=== PATIENT | male | born 1960 | race Caucasian/White ===

== ENCOUNTER 2019-04-03 07:45 | Inpatient (IN) | payer OTHER ==
[~2019-04-03] VITALS: Ht 167.6 cm; Wt 72.6 kg
[2019-04-21] MEDS ORDERED: INTESTINEX680 M1 PO (10:22)
[2019-04-21] MEDS ORDERED: POLY119PG PO (10:22)
[2019-04-21] MEDS ORDERED: ULTRACET PO (10:23)
== END 2019-04-21 13:32 | disposition home or self-care (01) | DRG 330 ==
LOC: O/R 07:45 → SURH 04-10 06:11
PROVIDERS: ADMIT Surgery
PROC: 0DQB4ZZ Repair Ileum, Percutaneous Endoscopic Approach (ICD-10-PCS; principal; 2019-04-10 15:15)
PROC: 0DJD8ZZ Inspection of Lower Intestinal Tract, Via Natural or Artificial Opening Endoscopic (ICD-10-PCS; 2019-04-18)
DX: Z43.2 Encounter for attention to ileostomy (principal); K63.2 Fistula of intestine; K91.31 Postprocedural partial intestinal obstruction; K57.30 Diverticulosis of large intestine without perforation or abscess without bleeding; C61 Malignant neoplasm of prostate; T83.091A Other mechanical complication of indwelling urethral catheter, initial encounter; Z19.1 Hormone sensitive malignancy status

== ENCOUNTER 2020-04-18 06:00 | Day surgery (SDC) | payer OTHER ==
[~2020-04-18 06:00] MED LIST: INTESTINEX680 M1 PO; POLY119PG PO; ULTRACET PO
[2020-04-18] MEDS ORDERED: ULTRAM50 MG PO (08:49)
[2020-04-18] MEDS ORDERED: MIRALAX17 GM PO (08:49)
[2020-04-18] MEDS ORDERED: TYLENOL ARTHRI650 MG PO (08:49)
[2020-04-18] MEDS ORDERED: NEURONTIN300 MG PO (08:49)
== END 2020-04-18 15:48 | disposition home or self-care (01) ==
LOC: CIR.AMB 06:00
PROVIDERS: ATTEND Surgery
DX: K40.90 Unilateral inguinal hernia, without obstruction or gangrene, not specified as recurrent (principal); Z20.828 Contact with and (suspected) exposure to other viral communicable diseases